=== PATIENT | female | born 1975 | race Caucasian/White ===

== ENCOUNTER 2018-01-04 20:48 | Emergency (ER) | payer OTHER, SELFPAY ==
[2018-01-04 20:56] VITALS: BP 135/88; PULSE 91; RESP 20; TEMP 37.5; O2SAT 96; BMI 42.0
--- NOTE | 2018-01-04 21:22 | DI.RAD.S_ITS ---
PROCEDURE: XR CHEST 2V INDICATIONS: cough pain, sob TECHNIQUE: 2 views of the chest were acquired. COMPARISON: None. FINDINGS: Surgical changes and devices: None. Lungs and pleura: Left upper lobe airspace infiltrate consistent with pneumonia. No pleural effusions or pneumothorax. Mediastinum: Mediastinal contours are normal. Heart size is normal. Bones and chest wall: No suspicious bony abnormalities. Soft tissues appear unremarkable. IMPRESSION: Left upper lobe pneumonia. Dictated by: Armando Chapin M.D. on 01/04/2018 at 22:19 Approved by: Armando Chapin M.D. on 01/04/2018 at 22:20
--- NOTE | 2018-01-04 21:25 | ED_ITS ---
HPI - SOB/Dyspnea General Chief Complaint: Shortness of Breath/Dyspnea Stated Complaint: SOB Time Seen by Provider: 01/04/18 21:05 Source: patient Mode of arrival: ambulatory Limitations: no limitations History of Present Illness Patient is a 42-year-old female who has had cough and shortness of breath for about 1 week. Initially started with drenching sweats and rigors. He had coughing spells. She then started with a sore throat she vomited once. She thought she was better yesterday. She went to work and has now lost her voice. Today she also went to work but then while driving had a coughing spell and coughed quite a lot and painfully and she was unable to stop. She now has chest pain and feels as though she can't take a deep breath. Her voice continues to be hoarse and she continues to have a sore throat. She was taking [id number] Tylenol p.m. which she says was allowing her to get some sleep. MD Complaint: shortness of breath, cough and pain with inspiration Context: smoke/fume exposure ( smokes) Severity: moderate Consistency/Duration: constant Related Data Home Medications Medication Instructions Recorded Confirmed acetaminophen #0 09/18/17 Previous Rx's Medication Instructions Recorded oseltamivir [Tamiflu] 75 mg PO BID #10 cap 09/18/17 levofloxacin [Levaquin] 750 mg PO Q24H 5 Days #5 tab 01/04/18 prednisone 50 mg PO DAILY 5 Days tab 01/04/18 Allergies Allergy/AdvReac Type Severity Reaction Status Date / Time Penicillins [PENICILLINS] Allergy Severe ANAPHYLACTI Verified 01/04/18 21:03 C amoxicillin [AMOXICILLIN] Allergy Unknown Verified 01/04/18 21:03 aspirin [ASPIRIN] Allergy Unknown VOMITING Verified 01/04/18 21:03 ibuprofen [IBUPROFEN] Allergy Unknown Verified 01/04/18 21:03 meperidine [From DEMEROL] Allergy Unknown Verified 01/04/18 21:03 procaine [From Novocain] Allergy Verified 01/04/18 21:03 Bee sting Allergy Unknown Uncoded 10/24/17 12:29 Review of Systems Review of Systems All systems reviewed & are unremarkable except as noted in HPI and below Constitutional Reports body ache(s), Reports chills, Reports fatigue and Reports fever(s) ENT Ears, Nose, Mouth, and Throat: Reports system reviewed and no additional complaints, except as docu, Reports as per HPI, Reports hoarseness and Reports sore throat Cardiovascular Denies chest pain, Denies irregular heart rhythm, Denies lightheadedness, Denies palpitations and Denies orthopnea Respiratory Reports as per HPI, Reports cough and Reports pain on inspiration Gastrointestinal Gastrointestinal: Denies abdominal pain, Denies nausea and Reports vomiting (x1) Musculoskeletal Denies back pain, Denies muscle weakness, Denies numbness and Denies tingling Integumentary/Breasts Denies pruritus, Denies erythema, Denies rash and Denies wounds Neurologic Denies numbness and Denies tingling Endocrine Reports fatigue and Denies palpitations PFSH Medical History Patient denies medical problems (Acute) Social History Smoking Status: Never smoker second hand exposure: Yes Exam Initial Vital Signs Initial Vital Signs: Vital Signs Temperature 99.5 F 01/04/18 20:56 Pulse Rate 91 H 01/04/18 20:56 Respiratory Rate 20 01/04/18 20:56 Blood Pressure 135/88 H 01/04/18 20:56 Pulse Oximetry 96 01/04/18 20:56 Const General: cooperative and well developed Nutritional Appearance: well nourished Orientation: alert, awake, oriented x3 and not confused HENAK Throat: posterior oropharynx normal, tonsils normal, uvula midline, no peritonsillar masses and postnasal drainage Chest Chest: normal inspection of the chest Resp Effort & Inspection: normal respiratory effort, able to speak in complete sentences, no respiratory distress and no use of accessory muscles Auscultation: clear to auscultation bilaterally, no rales, no rhonchi and no wheezes Cardio Rate: regular rate Rhythm: regular rhythm Heart Sounds: no click, no gallops, no murmurs and no rubs Pulses: normal peripheral pulses GI Inspection: non-distended Palpation: soft, no hepatosplenomegaly, No guarding, No pulsatile mass and No tender Auscultation: normal bowel sounds Skin General: no rashes or lesions noted, No erythema, No petechiae and warm Rashes: no rashes Neuro General: alert, awake and oriented x3 Cranial Nerves: CN's II-XI intact bilaterally Course Orders Ordered: ED Orders 01/04/18 21:22 XR chest 2V Stat 01/04/18 21:40 Strep Grp A by PCR Rapid Stat Discontinued Medications Albuterol (Ventolin Hfa Prepack) 1 box MISC SEEINSTR ONE Stop: 01/04/18 21:23 Last Admin: 01/04/18 21:52 Dose: 1 box Levofloxacin (Levaquin) 750 mg PO NOW ONE Stop: 01/04/18 22:32 Last Admin: 01/04/18 22:50 Dose: 750 mg Vital Signs - 8 hr 01/04/18 20:56 01/04/18 21:30 01/04/18 22:30 Temperature 99.5 F 99.5 F Pulse Rate 91 H 91 H 103 H Respiratory Rate 20 20 Blood Pressure 135/88 H 135/88 H Blood Pressure [Right Arm] 124/75 H Pulse Oximetry 96 96 99 MDM - SOB/Dyspnea Lab Data Lab Results 01/04/18 Range/Units 21:40 Group A Strep (PCR) Negative Imaging Data Chest x-ray: Radiologist's impression: PROCEDURE: XR CHEST 2V INDICATIONS: cough pain, sob TECHNIQUE: 2 views of the chest were acquired. COMPARISON: None. FINDINGS: Surgical changes and devices: None. Lungs and pleura: Left upper lobe airspace infiltrate consistent with pneumonia. No pleural effusions or pneumothorax. Mediastinum: Mediastinal contours are normal. Heart size is normal. Bones and chest wall: No suspicious bony abnormalities. Soft tissues appear unremarkable. IMPRESSION: Left upper lobe pneumonia. Dictated by: Armando Chapin M.D. on 01/04/2018 at 22:19 MDM Narrative Medical decision making narrative: She is doing better after albuterol. She does not appear toxic but looks as though she does not feel of well. She has low -grade fever, with pneumonia on x-ray. She has no risk factors or cor morbidities. At this time on will treat as outpatient. Discharge Plan Departure Patient Disposition: Home, Self-Care Clinical Impression: Pneumonia Discharge Date/Time: 01/04/18 22:51 Interventions: ED Discharge Assessment Last Done: 01/04/18 22:51 Instructions: Acute Bronchitis Activity Restrictions/Additional Instructions: *You have been diagnosed with pneumonia *What to do: Rest, fever control, increase fluids *Continue to take medications as directed -albuterol with spacer every 4 hr if needed for coughing spells or shortness of breath -prednisone once a day for the next 5 days may start tomorrow -Levaquin once a day for 5 days *Follow up with your primary care provider in 2-3 days, *Return to ER if you should have persistent fever worsening cough worsening shortness of breath or any new, worsening or concerning symptoms Prescriptions: New prednisone 50 mg tablet 50 mg PO DAILY 5 Days RF: 0 levofloxacin [Levaquin] 750 mg tablet 750 mg PO Q24H 5 Days Qty: 5 RF: 0 No Action acetaminophen 325 MG tablet Qty: 0 RF: 0 oseltamivir [Tamiflu] 75 MG capsule 75 mg PO BID Qty: 10 RF: 0 Referrals: [facility] [Provider Group] [facility] [Provider Group] [facility] [Provider Group]
[2018-01-04 21:30] VITALS: BP 135/88; PULSE 91; RESP 20; TEMP 37.5; O2SAT 96; BMI 42.0
[2018-01-04] MEDS: ALBUTEROL HFA PREPACK 1 BOX MISC (21:52)
[2018-01-04 21:53] LABS: Strep Grp A by PCR Rapid Negative
[2018-01-04 22:30] VITALS: BP 124/75; PULSE 103; O2SAT 99
[2018-01-04] MEDS: levoFLOXacin 250 MG TABLET 750 MG PO (22:50)
== END 2018-01-04 22:51 | disposition home or self-care (01) ==
LOC: ED 21:49
PROVIDERS: Emergency Provider Emergency Medicine
DX: J18.9 Pneumonia, unspecified organism (principal)
CPT/HCPCS: 71046; 81025; 87651; 99282; 99284

== ENCOUNTER → 2018-03-12 09:05 | Outpatient (CLI) | payer OTHER, SELFPAY ==
[2018-03-12 12:14] LABS: Hepatitis B Surface Antigen NEGATIVE s/c (NEGATIVE)
[2018-03-12 12:33] LABS: HIV 1 and 2 Antibody NEGATIVE (NEGATIVE); Hep C Virus Ab w/Reflex Quant NEGATIVE s/c (NEGATIVE)
[2018-03-12 14:15] LABS: Urine N gonorrhoeae NOT DETECTED
[2018-03-12 14:29] LABS: Urine Chlamydia NOT DETECTED
[2018-03-20 14:55] LABS: Rapid Plasma Reagin NON REACTIVE
== END ==
PROVIDERS: Visit Provider Physician Assistant
DX: Z20.2 Contact with and (suspected) exposure to infections with a predominantly sexual mode of transmission (principal)
CPT/HCPCS: 36415; 86592; 86703; 86803; 87340; 87491; 87591

== ENCOUNTER 2023-10-04 19:07 | Emergency (ER) | payer OTHER, SELFPAY ==
[2023-10-04 19:16] VITALS: BP 160/86; PULSE 80; RESP 16; TEMP 37.1; O2SAT 100; BMI 49.1
--- NOTE | 2023-10-04 19:19 | DI.RAD.S_ITS ---
PROCEDURE: XR ELBOW LT MIN 3V INDICATIONS: fall 1 month still having pain TECHNIQUE: 3 views of the elbow were acquired. COMPARISON: None. FINDINGS: Bones: No fractures or dislocations. No suspicious bony lesions. Soft tissues: No elbow joint effusion. No suspicious soft tissue calcifications. IMPRESSION: No acute bony abnormality or significant joint effusion. Dictated by: Po Oconnor M.D. on 10/04/2023 at 20:12 Approved by: Po Oconnor M.D. on 10/04/2023 at 20:12
--- NOTE | 2023-10-04 19:28 | ED.UPPEXIN ---
HPI - Extremity Injury (Upper) General Chief Complaint: Extremity Injury, Upper Stated Complaint: fall, arm px Time Seen by Provider: 10/04/23 19:12 Source: patient Mode of arrival: Ambulatory History of Present Illness HPI narrative: Patient is a healthy 48-year-old female who presents today with ongoing elbow pain. She reports about 3-4 weeks ago she fell while at home on an outstretched hand. She is ambidextrous and continues to work. But she does get some sharp shooting pain down her median nerve. She has been taking naproxen and ibuprofen for it but it has not really helping. She continues to have pain she hit it at work again today decided she has had enough fun decided to come in and get checked. She denies any weakness. Related Data Home Medications Medication Instructions Recorded Confirmed acetaminophen 325 mg tablet ##0 09/18/17 03/12/18 Previous Rx's Medication Instructions Recorded hydrocodone 5 mg-acetaminophen 325 1 tab PO Q6H PRN pain #10 tabs 10/04/23 mg tablet naproxen 500 mg tablet 500 mg PO BID PRN pain #20 tabs 10/04/23 Allergies Allergy/AdvReac Type Severity Reaction Status Date / Time Penicillins [PENICILLINS] Allergy Severe ANAPHYLACTI Verified 10/04/23 19:19 C amoxicillin [AMOXICILLIN] Allergy Unknown Verified 10/04/23 19:19 aspirin [ASPIRIN] Allergy Unknown VOMITING Verified 10/04/23 19:19 ibuprofen [IBUPROFEN] Allergy Unknown Verified 10/04/23 19:19 meperidine [From DEMEROL] Allergy Unknown Verified 10/04/23 19:19 procaine [From Novocain] Allergy Verified 10/04/23 19:19 Bee sting Allergy Unknown Uncoded 10/24/17 12:29 Patient History Medical History (Updated 10/04/23 @ 20:24 by Yamilex Ortiz DO) Patient denies medical problems Social History (Updated 01/05/18 @ 02:20 by Yamilex Ortiz DO) Smoking Status: Never smoker second hand exposure: Yes Smoking Status: Never smoker Substance Use Type: does not use Exam Initial Vital Signs Initial Vital Signs: Vital Signs Temperature 98.8 F 10/04/23 19:16 Pulse Rate 80 10/04/23 19:16 Respiratory Rate 16 10/04/23 19:16 Blood Pressure 160/86 H 10/04/23 19:16 Pulse Oximetry 100 10/04/23 19:16 Oxygen Delivery Method Room Air 10/04/23 19:16 GENERAL: Well-appearing, well-nourished and in no acute distress. CARDIOVASCULAR: peripheral pulses in tact, cap refill <2 sec RESPIRATORY: No respiratory distress, speaks in full sentences without difficulty EXTREMITIES: Normal range of motion, no clubbing or edema. Neurovascularly intact Left arm able to flex and extend wrist distal radial pulse intact good flexion and extension no decreased range in shoulder movement NEUROLOGICAL: Cranial nerves II through XII grossly intact. Normal gait and speech. SKIN: Warm, dry, no petechiae, no rashes or lesions. Course Orders Ordered: ED Orders 10/04/23 19:19 XR elbow LT min 3V Stat Discontinued Medications Hydrocodone Bitart/Acetaminophen (Hydrocodone/Acet 5/325 Prepack) 1 bottle MISC DIRECTED ONE Stop: 10/04/23 20:28 Last Admin: 10/04/23 20:36 Dose: 1 bottle Documented By: GILMA Vital Signs Vital signs: Vital Signs - 8 hr 10/04/23 19:16 10/04/23 19:29 10/04/23 20:30 Temperature 98.8 F Pulse Rate 80 81 Pulse Rate [Left Radial] 88 Respiratory Rate 16 18 Blood Pressure 160/86 H 155/83 H Pulse Oximetry 100 99 Oxygen Delivery Method Room Air Room Air [facility] - Extremity Injury (Upper) Imaging Data Extremity x-ray #1: Radiologist's Impression: PROCEDURE: XR ELBOW LT MIN 3V INDICATIONS: fall 1 month still having pain TECHNIQUE: 3 views of the elbow were acquired. COMPARISON: None. FINDINGS: Bones: No fractures or dislocations. No suspicious bony lesions. Soft tissues: No elbow joint effusion. No suspicious soft tissue calcifications. IMPRESSION: No acute bony abnormality or significant joint effusion. Dictated by: Po Oconnor M.D. on 10/04/2023 at 20:12 [facility] Narrative Medical decision making narrative: Patient well-appearing 48-year-old female who presents with ongoing left elbow pain after fall couple weeks ago. She does have some median neuropathy on exam but no actual weakness. X-ray is negative for fracture. Symptoms are consistent with a lateral epicondylitis. Supportive care only. Discharge Plan Departure Patient Disposition: Home Clinical Impression: Epicondylitis, lateral Instructions: DI for Lateral Epicondylitis (Tennis Elbow) Activity Restrictions/Additional Instructions: *You have been diagnosed with lateral epicondylitis *What to do: At this time you may find a brace [id number] that may help. Encourage icing and elevating decrease use. You may require physical therapy. X-ray does not show any sort of fracture or broken bone. *Continue to take medications as directed Naproxen 500 mg twice a day with food [place] 1 tablet every 6 hours if needed for severe pain *Follow up with your primary care provider in 2-3 days or call [phone] *Return to ER if you should have increasing pain weakness numbness tingling [or] any new, worsening or concerning symptoms CONTROLLED SUBSTANCE DISCHARGE (Narcotoic/benzodiazepine/Flexeril/Phenergan) 1. You have been prescribed narcotic medications, it does have acetaminophen/Tylenol/paracetamol in it, DO NOT TAKE MORE THAN 4,00mg in 24 hours of Tylenol. TRAMADOL DOES NOT CONTAIN TYLENOL 2. Please understand that we cannot provide further refills of narcotics, benzodiazepines or controlled substances through the ED and her pain management will need to be through your provider. 3. While on these medications you cannot drive or operate heavy machinery. 4. You cannot sign legal documents or perform any duties such as this. 5. As long as you're taking opiate pain medications he should also be taking a stool softener such as Colace, Dulcolax, MiraLAX or prune juice, to help avoid constipation. Prescriptions: New hydrocodone-acetaminophen 5-325 mg tablet 1 tab PO Q6H PRN (Reason: pain) Qty: 10 0RF naproxen 500 mg tablet 500 mg PO BID PRN (Reason: pain) Qty: 20 0RF Rx Instructions: administer with food or milk No Action acetaminophen 325 MG tablet Qty: 0 Referrals: Miscellaneous,Doctor, MD [Primary Care Provider] - Stand Alone Forms: Patient Portal/API
[2023-10-04 19:29] VITALS: PULSE 88
[2023-10-04 20:30] VITALS: BP 155/83; PULSE 81; RESP 18; O2SAT 99
[2023-10-04] MEDS: HYDROCODONE/ACET 5/325 PREPACK 1 BOTTLE MISC (20:36)
== END 2023-10-04 20:37 | disposition home or self-care (01) ==
PROVIDERS: Emergency Provider Emergency Medicine
DX: M77.12 Lateral epicondylitis, left elbow (principal)
CPT/HCPCS: 73080; 99281; 99283